=== PATIENT | male | born 1950 | race Caucasian/White ===

== ENCOUNTER 2017-11-03 09:52 | Day surgery (SDC) | payer MEDICARE, OTHER ==
--- NOTE | 2017-10-30 22:28 | EKG REPORT ---
SEVERITY:- ABNORMAL ECG - SINUS RHYTHM LEFT VENTRICULAR HYPERTROPHY : Confirmed by: Little Brito MD 30-Oct-2017 22:27:54
[~2017-11-03 09:52] MED LIST: LACTATED RINGERS 1000 ML IV PRN; LIDOCAINE 0.5% INJ-PF (5 MG/ML) 50 ML SDV SUBCUT PRN
[2017-11-03] MEDS ORDERED: CEFAZOLIN 2 GM/D5W RTU 2 GM/50 ML RTUPB IV PRN (10:26)
[2017-11-03] MEDS ORDERED: MINERAL OIL (STERILE) 10 ML VIAL ONE (10:34)
[2017-11-03] MEDS ORDERED: BUPIVACAINE HCL 0.5%-EPI 1:200000 INJ/PF 30 ML VIAL ONE (10:34)
[2017-11-03] MEDS ORDERED: BUPIVACAINE HCL 0.5%/EPI 1:200000 INJ 1.8 ML CARTRIDGE ONE (10:34)
[2017-11-03] MEDS ORDERED: OXYMETAZOLINE HCL 0.05% NASAL SPRAY 15 ML BOTTLE ONE (10:34)
[2017-11-03] MEDS ORDERED: CARBOXYMETHYLCELLULOSE SOD 0.5% 0.4 ML DROPERETTE ONE (10:36)
[2017-11-03] MEDS ORDERED: PROPOFOL INJ 200 MG/20 ML VIAL IV ONE (10:37)
[2017-11-03] MEDS ORDERED: MIDAZOLAM 2 MG/2 ML INJ ONE (10:37)
[2017-11-03] MEDS ORDERED: FENTANYL CITRATE INJ/PF 100 MCG/2 ML AMPUL ONE (10:37)
[2017-11-03] MEDS ORDERED: DEXAMETHASONE SOD PHOS INJ 10 MG/1 ML VIAL ONE (10:37)
[2017-11-03] MEDS ORDERED: ONDANSETRON HCL INJ/PF 4 MG/2 ML SDV ONE (10:37)
[2017-11-03] MEDS ORDERED: SUCCINYLCHOLINE CHLORIDE INJ 200 MG/10 ML VIAL ONE (10:38)
[2017-11-03] MEDS ORDERED: ROCURONIUM BROMIDE INJ 50 MG/5 ML VIAL IV ONE (10:38)
[2017-11-03] MEDS ORDERED: DIPHENHYDRAMINE HCL 50 MG/ML VIAL ONE (10:39)
[2017-11-03] MEDS ORDERED: SCOPOLAMINE HYDROBROMIDE 1.5 MG PATCH.TD72 TD PRN (10:47)
[2017-11-03] MEDS ORDERED: RINGERS SOLUTION,LACTATED 250 ML IV PRN (10:48)
[2017-11-03] MEDS ORDERED: HYDROCODONE/ACETAMINOPHEN 5-325 MG TABLET ONE (15:17)
--- NOTE | 2017-11-06 09:14 | SURGICARE OPERATIVE REPORT E ---
[facility] Operative Report NAME: TRICE LIND AGE: 67Y DATE OF SURGERY: 11/03/2017 ROOM: PREOPERATIVE DIAGNOSES: 1. Nasal septal deviation, acquired. 2. Chronic nasal dyspnea. 3. Bilateral inferior turbinate hypertrophy. POSTOPERATIVE DIAGNOSES: 1. Nasal septal deviation, acquired. 2. Chronic nasal dyspnea. 3. Bilateral inferior turbinate hypertrophy. OPERATION PERFORMED: 1. Septoplasty. 2. Bilateral inferior turbinate reduction using a submucous resection technique. SURGEON: TRICE MARES D.O. ANESTHESIA: General endotracheal tube. ANESTHESIA STAFF: JODY Pressley ESTIMATED BLOOD LOSS: 50 mL. FLUIDS: 1250 mL. COMPLICATIONS: None. DRAINS: None. SPONGE COUNT: Verified NEEDLE COUNT: Verified. MATERIALS FORWARDED SPECIMEN: None. FINDINGS: 1. Right nasal septal deviation involving bone and cartilage with caudal septal cartilage fractures and bowing deformity. 2. Maxillary crest spur/septal spur. 3. Bilateral inferior turbinate hypertrophy. 4. Bulbous nasal tip that is heavy and ptotic in nature. INDICATIONS: This is a 67-year-old -[place] Citizen male who was seen and evaluated in the [facility] office. The patient had been referred for and he complained of difficult nasal airflow over the years. The patient reports a history of nasal trauma years ago. The patient denies history of acute recurrent or chronic sinusitis-type symptoms. The patient has desired to improve his nasal airflow. After extensive discussion with the patient, recommendation and plan was for septoplasty with bilateral inferior turbinate reduction. The procedures and all of their risks and complications were all discussed in detail with the patient. He voiced an understanding of the described surgical plan, agreed to proceed, and consent was obtained. PROCEDURE: The patient was taken to the main operating room and placed on the operating room table in the supine position. Appropriate monitors were placed. Using mask and IV access, general anesthesia was induced. The patient was transorally intubated without difficulty. Patient next underwent a nasal examination with injection of local anesthetic with epinephrine to establish a nasal block. Two Afrin-soaked neuro patties were placed per nasal passage. The patient was then prepped and draped in the usual fashion for nasal surgery. There was a hemitransfixion incision performed with elevation of the mucoperichondrial and periosteal flaps without difficulty. The bony cartilaginous junction was identified and divided with the most deviated portions of septal cartilage and bone removed. There was a greater than 1.5 x 1.5 cm cartilaginous L-strut preserved. There were caudal septal cartilage fragments with bowing deformity noted. The septal spur and maxillary crest spur were removed without difficulty. At this point a large caudal septal graft was fashioned and set in place on the right side and was fixed in place with 5-0 Prolene suture. The septum had also been freed from the anterior nasal spine. At this point the septum with graft was fixed again in the midline at the anterior nasal spine with 5-0 Prolene suture. The hemitransfixion incision was transitioned into a full transfixion incision. There was a precise pocket created between the medial crura/medial crural footplate. A 5-0 Prolene suture was used to perform a [place] suture for tip stabilization and support. At this point the remaining cartilage was placed back between the mucosal flaps to be banked. The nose was thoroughly suctioned with adequate hemostasis noted. Next, 1 [place] silicone nasal splint was placed per nasal passage and these were secured at the caudal aspect with Prolene suture. At this point the patient's nose was cleaned and dried and he was returned to the anesthesia staff and allowed to emerge from general anesthesia. The patient was extubated in the main operating room and was then transported to the postanesthesia recovery unit in stable condition. There were no complications. DICTATING PHYSICIAN: TRICE MARES D.O. [id number] PHY#: [id number] ID: [id number] JOB#: [id number] ACCT: [id number] cc:TRICE MARES D.O. >
== END 2017-11-03 16:15 | disposition home or self-care (01) ==
LOC: SC 09:52
PROVIDERS: ATTEND Otolaryngology
DX: G47.33 Obstructive sleep apnea (adult) (pediatric) (principal); J34.2 Deviated nasal septum; J34.3 Hypertrophy of nasal turbinates; R06.09 Other forms of dyspnea; K21.9 Gastro-esophageal reflux disease without esophagitis; M19.90 Unspecified osteoarthritis, unspecified site; E11.9 Type 2 diabetes mellitus without complications; M10.9 Gout, unspecified; J45.909 Unspecified asthma, uncomplicated; Z79.82 Long term (current) use of aspirin; Z79.899 Other long term (current) drug therapy; Z79.84 Long term (current) use of oral hypoglycemic drugs; Z79.51 Long term (current) use of inhaled steroids
CPT/HCPCS: 93005; 82962; 93010; 30520; 30140; J2250; J3490 ×4; J1200; J3010; J0330; J2405; J2704; J1100; J0690; A9270; 160